=== PATIENT | male | born 1975 | race Caucasian/White ===

== ENCOUNTER 2022-01-20 17:58 | Emergency (ER) | payer OTHER ==
[~2022-01-20] VITALS: Ht 177.8 cm; Wt 124.7 kg
[~2022-01-20 17:58] MED LIST: Cymbalta60 MG; ERYT.5TO LEFTEYE; HALO2 PO; LISI5 PO; NAPR500 PO; OXYACE5T PO; RXERYTOPTH OP
[2022-01-20 19:58] LABS: BASOPHILS ABSOLUTE AUTO 0.02 K/mm3 (0.00-0.23); BASOPHILS PERCENT AUTO 0 % (0-2); EOSINOPHILS PERCENT AUTO 1 % (0-6); Hematocrit 36.7 % (37.0-53.0); Hemoglobin 11.9 g/dL (13.5-17.5); IMMATURE GRAN ABSOLUTE AUTO 0.06 K/mm3 (0.00-0.10); IMMATURE GRAN PERCENT AUTO 1 % (0-1); LYMPHOCYTES ABSOLUTE AUTO 0.87 K/mm3 (0.84-5.20); LYMPHOCYTES PERCENT AUTO 9 % (21-46); MONOCYTES ABSOLUTE AUTO 0.58 K/mm3 (0.16-1.47); MONOCYTES PERCENT AUTO 6 % (4-13); Mean Corpuscular HGB 26.4 pg (26.0-34.0); Mean Corpuscular HGB Conc 32.4 g/dL (31.5-36.5); Mean Corpuscular Volume 81 fL (80-100); NEUTROPHILS ABSOLUTE AUTO 7.81 K/mm3 (1.96-9.15); NEUTROPHILS PERCENT AUTO 83 % (41-73); RDW Coefficient Variation 15.5 % (11.7-14.2); RDW Standard Deviation 46.2 fL (35.1-46.3); Red Blood Cell Count 4.51 M/mm3 (4.30-5.90); White Blood Cell Count 9.44 K/mm3 (4.00-11.30)
[2022-01-20 19:59] LABS: Mean Platelet Volume 9.8 fL (9.1-12.4)
[2022-01-20 20:11] LABS: Alanine Aminotransfer (ALT/SGP 81 U/L (12-78); Albumin, Blood 3.1 g/dL (3.4-5.0); Albumin/Globulin Ratio 0.7 (0.8-1.8); Alk Phos 129 U/L (50-136); Anion Gap 7 mmol/L (6-16); Aspartate Aminotrans (AST/SGOT 65 U/L (12-37); Bilirubin, Total 0.6 mg/dL (0.1-1.0); Blood Urea Nitrogen 18 mg/dL (8-24); Bun/Creatinine Ratio 18.8 (12.0-20.0); CO2, Blood 29 mmol/L (21-32); Chloride, Blood 100 mmol/L (98-108); Creatinine, Blood 0.96 mg/dL (0.60-1.20); Globulin, Blood 4.4 g/dL (2.2-4.0); Glomerular Filtration Rate >60 (60-); Glucose, Blood 113 mg/dL (70-99); Potassium, Blood 3.9 mmol/L (3.5-5.5); Sodium, Blood 136 mmol/L (136-145); Total Protein, Blood 7.5 g/dL (6.4-8.2)
[2022-01-20 20:18] LABS: Platelet Count 207 K/mm3 (150-400)
[2022-01-20 20:22] LABS: Influenza A, PCR NEGATIVE (NEGATIVE); Influenza B, PCR NEGATIVE (NEGATIVE); Resp Syncytial Virus, PCR NEGATIVE (NEGATIVE)
[2022-01-20 20:40] LABS: SARS-Cov-2 (COVID-19) PCR, MMC POSITIVE (NEGATIVE)
== END 2022-01-20 21:56 | disposition home or self-care (01) ==
LOC: ER 17:58
PROVIDERS: Physician Assistant
DX: U07.1 COVID-19 (principal); F17.200 Nicotine dependence, unspecified, uncomplicated
CPT/HCPCS: 0241U; 36415; 71045; 80053; 83605; 85025; 93005; 93010; J2060

== ENCOUNTER 2025-01-07 15:07 | Inpatient (IN) | payer OTHER ==
[~2025-01-07] VITALS: Ht 172.7 cm; Wt 121.5 kg
[~2025-01-07 15:07] MED LIST changes: +AMLO10 PO; +ATOR40TA PO; +Aspir 8181 MG PO; +BUSP10 PO; +CARV6.25 PO; +DIPH50 PO; +FURO40 PO; +HYDHCL25 PO; +LOSA50 PO; +RISP3 PO; +SPIR25 PO
[2025-01-07] MEDS ORDERED: MethylPREDNISolone Sod Succ 125 MG Vial IV ONE (15:15)
[2025-01-07] MEDS ORDERED: Albuterol 2.5 MG/3 ML VIAL INH SCH (15:15)
[2025-01-07 15:30] LABS: BASOPHILS ABSOLUTE AUTO 0.06 K/mm3 (0.00-0.23); BASOPHILS PERCENT AUTO 1 % (0-2); EOSINOPHILS ABSOLUTE AUTO 0.17 K/mm3 (0.00-0.68); EOSINOPHILS PERCENT AUTO 1 % (0-6); Hematocrit 36.6 % (37.0-53.0); Hemoglobin 11.6 g/dL (13.5-17.5); IMMATURE GRAN ABSOLUTE AUTO 0.06 K/mm3 (0.00-0.10); IMMATURE GRAN PERCENT AUTO 1 % (0-1); LYMPHOCYTES ABSOLUTE AUTO 0.94 K/mm3 (0.84-5.20); LYMPHOCYTES PERCENT AUTO 8 % (21-46); MONOCYTES ABSOLUTE AUTO 0.91 K/mm3 (0.16-1.47); MONOCYTES PERCENT AUTO 8 % (4-13); Mean Corpuscular HGB 26.4 pg (26.0-34.0); Mean Corpuscular HGB Conc 31.7 g/dL (31.5-36.5); Mean Corpuscular Volume 83 fL (80-100); NEUTROPHILS ABSOLUTE AUTO 9.69 K/mm3 (1.96-9.15); NEUTROPHILS PERCENT AUTO 82 % (41-73); NRBC ABSOLUTE 0.02 K/mm3 (0.00-0.02); NRBC Auto 0.2 /100 WBC (0.0-0.2); Platelet Count 254 K/mm3 (150-400); RDW Coefficient Variation 16.2 % (11.7-14.2); RDW Standard Deviation 48.9 fL (35.1-46.3); White Blood Cell Count 11.83 K/mm3 (4.00-11.30)
[2025-01-07 15:49] LABS: Albumin, Blood 3.1 g/dL (3.4-5.0); Albumin/Globulin Ratio 0.8 (0.8-1.8); Bilirubin, Total 1.1 mg/dL (0.1-1.0); Bun/Creatinine Ratio 17.1 (12.0-20.0); Calcium, Blood 9.4 mg/dL (8.5-10.1); Creatinine, Blood 0.94 mg/dL (0.60-1.20); Potassium, Blood 4.5 mmol/L (3.5-5.5); Total Protein, Blood 7.1 g/dL (6.4-8.2)
[2025-01-07 16:05] LABS: Influenza A, PCR NEGATIVE (NEGATIVE); Influenza B, PCR NEGATIVE (NEGATIVE); Resp Syncytial Virus, PCR NEGATIVE (NEGATIVE); SARS-Cov-2 (COVID-19) PCR, MMC NEGATIVE (NEGATIVE)
[2025-01-07] MEDS ORDERED: Furosemide 10 MG/ML 4ML Vial IV ONE (16:30)
[2025-01-07] MEDS ORDERED: Ipratropium/Albuterol SulF 2.5-0.5MG/3 ML Amp INH SCH ×2 (18:15)
[2025-01-07] MEDS ORDERED: Albuterol 2.5 MG/3 ML VIAL INH PRN (19:40)
[2025-01-07] MEDS ORDERED: CefTRIAXone Sodium 1,000 MG in NS 100 ML IV SCH (19:49)
[2025-01-07] MEDS ORDERED: Azithromycin 500 MG in NS 250 ML IV SCH (19:49)
[2025-01-07] MEDS ORDERED: FLU VACC TS2024-25(6MOS UP)/PF 45 MCG/0.5 ML SYRINGE IM ONE (20:00)
[2025-01-07] MEDS ORDERED: Nicotine 14 MG PATCH TOP SCH (20:00)
[2025-01-07] MEDS ORDERED: Lactobacil 2-S.Thermo-Bifido 1 1 Cap PO SCH (21:00)
[2025-01-08] MEDS ORDERED: MethylPREDNISolone Sod Succ 125 MG Vial IV SCH
[2025-01-08 01:05] VITALS: BP 146/111
--- NOTE | 2025-01-08 01:22 | NUR ---
ED TRANSFER/ SHIFT SUMMARY PT ARRIVED IN THE [facility] TO THE MEDICAL FLOOR @0101 FROM THE ED. PT BROUGHT ALL HIS BELONINGS WITH HIM. PT TRANSFERRED INDEPENDENTLY TO THE HOSPITAL BED. EDUCATED ON THE CALL LIGHT. RN BREAK NURSE RANGEL COMPLETED THE ADMISSION ASSESSMENT, SKIN CHECK WITH THIS YOUTH SERVICES SPECIALIST. HEALTH HX COMPLETED. MEDICATION RECONCILIATION COMPLETED BY THIS YOUTH SERVICES SPECIALIST. PER PT REPORT HE HAS BEEN NON-COMPLIANT WITH HIS HOME MEDICATIONS, EXCEPT TOOK BABY ASPIRIN YESTERDAY, 01/07/25. PT IS A/O X4, ABLE TO MAKE HIS NEEDS KNOWN. PT IS ON 2L VIA NASAL CANULA, BASELINE IS RA. PT IS ON TELE MONITORING. IV IS ON RIGHT UPPER CHEST WALL, SALINE LOCKED. PT USING URINAL. NO COMPLAINTS OFFERED. SNACK GIVEN TO THE PT. BED AT THE LOWEST POSITION, CALL LIGHT WITHIN REACH.
[2025-01-08 04:25] VITALS: BP 142/97
[2025-01-08 06:39] LABS: BASOPHILS ABSOLUTE AUTO 0.02 K/mm3 (0.00-0.23); BASOPHILS PERCENT AUTO 0 % (0-2); EOSINOPHILS PERCENT AUTO 0 % (0-6); Hematocrit 39.8 % (37.0-53.0); Hemoglobin 12.4 g/dL (13.5-17.5); IMMATURE GRAN ABSOLUTE AUTO 0.07 K/mm3 (0.00-0.10); IMMATURE GRAN PERCENT AUTO 1 % (0-1); LYMPHOCYTES ABSOLUTE AUTO 0.36 K/mm3 (0.84-5.20); LYMPHOCYTES PERCENT AUTO 3 % (21-46); MONOCYTES ABSOLUTE AUTO 0.16 K/mm3 (0.16-1.47); MONOCYTES PERCENT AUTO 2 % (4-13); Mean Corpuscular HGB 26.1 pg (26.0-34.0); Mean Corpuscular HGB Conc 31.2 g/dL (31.5-36.5); Mean Corpuscular Volume 84 fL (80-100); Mean Platelet Volume 10.6 fL (9.1-12.4); NEUTROPHILS ABSOLUTE AUTO 10.09 K/mm3 (1.96-9.15); NEUTROPHILS PERCENT AUTO 94 % (41-73); Platelet Count 318 K/mm3 (150-400); RDW Coefficient Variation 16.3 % (11.7-14.2); RDW Standard Deviation 49.3 fL (35.1-46.3); Red Blood Cell Count 4.76 M/mm3 (4.30-5.90)
[2025-01-08 06:56] LABS: Albumin, Blood 3.3 g/dL (3.4-5.0); Albumin/Globulin Ratio 0.7 (0.8-1.8); Bilirubin, Total 0.8 mg/dL (0.1-1.0); Bun/Creatinine Ratio 25.5 (12.0-20.0); Calcium, Blood 9.8 mg/dL (8.5-10.1); Creatinine, Blood 0.83 mg/dL (0.60-1.20); Globulin, Blood 4.5 g/dL (2.2-4.0); Potassium, Blood 4.1 mmol/L (3.5-5.5); Total Protein, Blood 7.8 g/dL (6.4-8.2)
[2025-01-08] MEDS ORDERED: Carvedilol 3.125 MG Tab PO SCH (08:00)
[2025-01-08 08:13] VITALS: BP 110/92
[2025-01-08] MEDS ORDERED: Enoxaparin 40 MG/0.4 ML SYR SC SCH (09:00)
[2025-01-08] MEDS ORDERED: Furosemide 10 MG/ML 4ML Vial IV SCH (09:00)
[2025-01-08] MEDS ORDERED: Losartan Potassium 25 MG Tab PO SCH (09:00)
[2025-01-08] MEDS ORDERED: Empagliflozin 10 MG TAB PO SCH (09:00)
[2025-01-08] MEDS ORDERED: NS 250 ML IV PRN (10:50)
[2025-01-08 15:36] VITALS: BP 110/62
[2025-01-08] MEDS ORDERED: Insulin Human Lispro 100 Units/ML 3ML Syringe SC SCH (16:30)
--- NOTE | 2025-01-08 18:29 | NUR ---
SHIFT SUMMARY PT A&OX4. PT ADMITTED DUE TO ACUTE RESP. FAILURE. PT REPORTS NO PAIN. PT INDEPENDENT IN ROOM. PT ON TELE. PT HAS CONT PULSE OX ON. SPO2 IS 90%. PT REPORTS NO SOB BUT HAS TACHYPNIA WITH EXERTION. PT EATS ADEQUATE. PT ACHS, DID NOT NEED TO USE CORRECTION DURING SHIFT. PT ON STRICT I&O'S WITH FREE WATER RESTRICTION OF 1500. PT REMAINED WITHIN RANGE DURING SHIFT. PT RECEIVING ANTIBIOTIC, LASIX, STEROIDS. RESPIRATORY CARE GIVES PT TREATMENTS. PT DID NOT RECEIVING MORNING DOSE OF LASIX AND STEROID DUE TO NO IV. CALLED DR. WEBB NOTIFY, LEFT VOICEMAIL, DID NOT RECEIVE CALL BACK. PT IV WAS PLACED AFTER 2 ATTEMPTS BY THIS RN, AND MULTIPLE BY CHARGE AND OTHER RN'S. IV WAS PLACED, BUT THE IV THAT WAS PLACED THIS AFTERNOON WAS PULLED, "PT REPORTED NOT LIKING PLACEMENT, HARD TO USE DOMINANT HAND." WILL PASS ON TO INTERFACE CONTROL OFFICER, PT NEEDS IV. PT HAS ECHO TODAY. PT VSS. PT USES URINAL, AND IS CONTINENT. FRIEND WAS AT BEDSIDE TODAY. PT IN BED. BED IN LOWEST POSITION, CALL LIGHT IN REACH.
[2025-01-08 19:20] VITALS: BP 119/75
--- NOTE | 2025-01-08 21:25 | NUR ---
@[id number] THIS CERTIFIED PHLEBOTOMIST CALLED THE RESIDENT (OSMAR) D/T PT YELLING ON THE PHONE, AGITATED. PT ALSO WAS AGITATED AT HS, FIDGETY AND REPORTS ANXIETY. PER PT REPORT HE HAS BEEN OFF ALL HIS MEDICATIONS FOR OVER SIX MONTHS, INCLUDING RISPERIDONE. NEW ORDER FOR HYDROXYZINE 50MG PO X1 RECEIVED.
[2025-01-08] MEDS ORDERED: HyDROXyzine HCl 25 MG Tab PO ONE (22:00)
[2025-01-08 23:53] VITALS: BP 135/95
[2025-01-09] VITALS (9 sets, daily range): BP systolic 102–138; BP diastolic 66–125
--- NOTE | 2025-01-09 03:06 | NUR ---
SHIFT SUMMARY NO ACUTE EVENTS DURING THIS SHIFT. EX AND PT'S CHILDREN BY THE BEDSIDE WITH LOUDNESS @HS. THIS NURSE ASKED THE EX- TO LEAVE THE BEDSIDE D/T ARGUING LOUDLY WITH THE PT. PT CONTINUES ON 2L VIA NASAL CANNULA. CONTINUOUS PULSE OXIMETER SAT'S LOW 90'S. PT DENIES SOB. HS BG 152. STRICT I&O'S, FREE H2O 1.5L. PT REPORTS VERY THIRSTY, DRINKING 3GALLONS/DAY MILK AND WATER @HOME/DAY. PT DENIES PAIN. AGITATED AND FIDGETY @HS. ONE-TIME ORDER OF ATARAX 50MG RECEIVED FROM ON-CALL RESIDENT. ADMINISTERED WITH GOOD EFFECTIVNESS. IV ABX ADMINISTERED ORDERED. BED AT THE LOWEST POSITION, CALL LIGHT W/I REACH. PT IS A/O X4, ABLE TO MAKE HIS NEEDS KNOWN AND COOPERATIVE WITH CARE.
[2025-01-09 06:02] LABS: BASOPHILS ABSOLUTE AUTO 0.02 K/mm3 (0.00-0.23); BASOPHILS PERCENT AUTO 0 % (0-2); EOSINOPHILS PERCENT AUTO 0 % (0-6); Hematocrit 40.6 % (37.0-53.0); Hemoglobin 12.6 g/dL (13.5-17.5); IMMATURE GRAN ABSOLUTE AUTO 0.12 K/mm3 (0.00-0.10); IMMATURE GRAN PERCENT AUTO 1 % (0-1); LYMPHOCYTES ABSOLUTE AUTO 0.47 K/mm3 (0.84-5.20); LYMPHOCYTES PERCENT AUTO 3 % (21-46); MONOCYTES PERCENT AUTO 2 % (4-13); Mean Corpuscular HGB 26.2 pg (26.0-34.0); Mean Corpuscular Volume 84 fL (80-100); Mean Platelet Volume 10.2 fL (9.1-12.4); NEUTROPHILS ABSOLUTE AUTO 17.51 K/mm3 (1.96-9.15); NEUTROPHILS PERCENT AUTO 95 % (41-73); Platelet Count 413 K/mm3 (150-400); RDW Coefficient Variation 16.3 % (11.7-14.2); RDW Standard Deviation 50.1 fL (35.1-46.3); Red Blood Cell Count 4.81 M/mm3 (4.30-5.90); White Blood Cell Count 18.42 K/mm3 (4.00-11.30)
[2025-01-09 06:31] LABS: Anion Gap 7 mmol/L (3-11); Blood Urea Nitrogen 33 mg/dL (8-24); Bun/Creatinine Ratio 35.1 (12.0-20.0); CHOL/HDL RATIO 5.3; CO2, Blood 33 mmol/L (21-32); Calcium, Blood 9.6 mg/dL (8.5-10.1); Chloride, Blood 103 mmol/L (98-108); Cholesterol 212 mg/dL (50-200); Creatinine, Blood 0.94 mg/dL (0.60-1.20); Glomerular Filtration Rate 100 (60-); Glucose, Blood 145 mg/dL (70-99); HDL Cholesterol 40 mg/dL (>39); LDL/HDL RATIO 3.7; Low Density Lipoprotein Chol 149 mg/dL (0-110); Potassium, Blood 4.4 mmol/L (3.5-5.5); Sodium, Blood 139 mmol/L (136-145); Triglycerides 115 mg/dL (30-160); Very Low Density Lipoprot Chol 23 mg/dL (6-32)
[2025-01-09] MEDS ORDERED: Atorvastatin 40 MG Tab PO SCH (09:00)
[2025-01-09] MEDS ORDERED: RisperiDONE 1 MG Tab PO SCH (09:00)
[2025-01-09] MEDS ORDERED: Carvedilol 3.125 MG Tab PO SCH (09:00)
[2025-01-09] MEDS ORDERED: Aspirin 81 MG Chew PO SCH (09:00)
[2025-01-09] MEDS ORDERED: DULoxetine HCL 30 MG Cap DR PO SCH (09:00)
[2025-01-09] MEDS ORDERED: Spironolactone 25 MG Tab PO SCH (09:00)
[2025-01-09] MEDS ORDERED: BusPIRone HCl 10 MG Tab PO SCH (09:00)
[2025-01-09] MEDS ORDERED: HyDROXyzine HCl 25 MG Tab PO SCH (09:00)
--- NOTE | 2025-01-09 18:32 | NUR ---
SHIFT SUMMMARY- PT ALERT AND ORIENTED, INDEPENDENT TO THE BATHROOM. RECIEVING IV LASIX BID. PT HAS BEEN SLEEPING T/O THE DAY. PSYCH CONSULT WAS CALLED TO DR Mary OF PSYCHHIATRY. HE IS AWARE AND WILLL SEE THE PT TOMORROW MORNING. PT STATES HHE SWEATS HHEAVIILY AT NIGHT, BED BATH COMPLLETED WITH SOME PT ASSISTANCE. PT IS RA AT BASELINE, HOWEVER HE IS SWEATING HEAVILY AND APPPEARS TO HAVE INCREASED WOB. RT IS AWARE AND HAS PROVIDED PT WITH BREATHING Tx T/O THEE DAY. HE HAS BEEN SLEEPING SOUNDLY ON ALL ROUNDS. PT IS CURRENTLY LAYING IN BED, CALL LIGHT IN REACH, TELE AND CONT PULSE OX IN PLACE WELL O2 VIA NC.
[2025-01-09] MEDS ORDERED: DiphenhydrAMINE HCl 50 MG Cap PO SCH (21:00)
--- NOTE | 2025-01-10 03:09 | NUR ---
SHIFT SUMMARY NO ACUTE OVERNIGHT EVENTS. PT RESTING T/O THIS SHIFT, EASILY AWAKEN/AROUSABLE FOR MEDICATION ADMINISTRATION AND ROUNDS. PT IS COOPERATIVE WITH CARE. O2 @2L VIA NASAL CANNULA. CONTINUOUS PULSE OXIMETER IN PLACE, SAT'S HAVE BEEN IN LOW 90%. PT DENIES SOB. HS B. TELE:SR @84, PT DENIES PAIN/PRESSURE. IV ABX ADMINISTERED ORDERED. BED AT THE LOWEST POSITION, CALL LIGHT W/I REACH. PT IS A/O X4, ABLE TO MAKE HIS NEEDS KNOWN.
[2025-01-10 04:28] VITALS: BP 108/73
[2025-01-10 06:30] LABS: BASOPHILS ABSOLUTE AUTO 0.01 K/mm3 (0.00-0.23); BASOPHILS PERCENT AUTO 0 % (0-2); EOSINOPHILS PERCENT AUTO 0 % (0-6); Hematocrit 42.6 % (37.0-53.0); Hemoglobin 13.2 g/dL (13.5-17.5); IMMATURE GRAN PERCENT AUTO 1 % (0-1); LYMPHOCYTES ABSOLUTE AUTO 0.43 K/mm3 (0.84-5.20); LYMPHOCYTES PERCENT AUTO 3 % (21-46); MONOCYTES ABSOLUTE AUTO 0.23 K/mm3 (0.16-1.47); MONOCYTES PERCENT AUTO 2 % (4-13); Mean Corpuscular HGB 26.6 pg (26.0-34.0); Mean Corpuscular Volume 86 fL (80-100); Mean Platelet Volume 9.5 fL (9.1-12.4); NEUTROPHILS ABSOLUTE AUTO 14.94 K/mm3 (1.96-9.15); NEUTROPHILS PERCENT AUTO 95 % (41-73); Platelet Count 420 K/mm3 (150-400); RDW Coefficient Variation 16.5 % (11.7-14.2); RDW Standard Deviation 50.9 fL (35.1-46.3); Red Blood Cell Count 4.97 M/mm3 (4.30-5.90); White Blood Cell Count 15.71 K/mm3 (4.00-11.30)
[2025-01-10 07:08] LABS: Albumin/Globulin Ratio 0.7 (0.8-1.8); Bilirubin, Total 0.6 mg/dL (0.1-1.0); Bun/Creatinine Ratio 45.9 (12.0-20.0); Creatinine, Blood 1.11 mg/dL (0.60-1.20); Globulin, Blood 4.2 g/dL (2.2-4.0); Potassium, Blood 4.2 mmol/L (3.5-5.5); Total Protein, Blood 7.2 g/dL (6.4-8.2)
[2025-01-10 07:33] VITALS: BP 119/77
[2025-01-10 12:05] VITALS: BP 82/55
[2025-01-10 15:40] VITALS: BP 110/67
--- NOTE | 2025-01-10 19:21 | NUR ---
SHIFT SUMMARY PATIENT SLEEPING MOST OF SHIFT. HE DOES WAKE EASILY FOR MEDICATIONS, FOOD AND TO URINATE. PATIENT WAS ABLE TO TOLERATE REDUCTION OF OXYGEN THIS EVENING AT 1800, SATTING 93% ON 2.5L WHILE SLEEPING. HE CALLS APPROPRIATLY.
[2025-01-10 19:56] VITALS: BP 105/70
[2025-01-10 23:53] VITALS: BP 119/75
--- NOTE | 2025-01-11 03:24 | NUR ---
SHIFT SUMMARY 2L NASAL CANNULA, BIOX SAT'S>90%.DENIES SOB,PAIN.TELE:SR @80.HS B.BED @LOWEST POSITION,CALL LIGHT W/I REACH.A/O X3, ABLE TO MAKE HIS NEEDS KNOWN. NO ACUTE EVENTS DURING THIS SHIFT.
[2025-01-11 04:27] VITALS: BP 132/92
[2025-01-11 05:29] LABS: BASOPHILS ABSOLUTE AUTO 0.02 K/mm3 (0.00-0.23); BASOPHILS PERCENT AUTO 0 % (0-2); EOSINOPHILS PERCENT AUTO 0 % (0-6); Hematocrit 41.7 % (37.0-53.0); Hemoglobin 13.1 g/dL (13.5-17.5); IMMATURE GRAN ABSOLUTE AUTO 0.12 K/mm3 (0.00-0.10); IMMATURE GRAN PERCENT AUTO 1 % (0-1); LYMPHOCYTES ABSOLUTE AUTO 0.49 K/mm3 (0.84-5.20); LYMPHOCYTES PERCENT AUTO 3 % (21-46); MONOCYTES ABSOLUTE AUTO 0.46 K/mm3 (0.16-1.47); MONOCYTES PERCENT AUTO 3 % (4-13); Mean Corpuscular HGB 26.4 pg (26.0-34.0); Mean Corpuscular HGB Conc 31.4 g/dL (31.5-36.5); Mean Corpuscular Volume 84 fL (80-100); Mean Platelet Volume 9.7 fL (9.1-12.4); NEUTROPHILS ABSOLUTE AUTO 14.19 K/mm3 (1.96-9.15); NEUTROPHILS PERCENT AUTO 93 % (41-73); Platelet Count 409 K/mm3 (150-400); RDW Coefficient Variation 16.4 % (11.7-14.2); RDW Standard Deviation 49.7 fL (35.1-46.3); Red Blood Cell Count 4.97 M/mm3 (4.30-5.90); White Blood Cell Count 15.28 K/mm3 (4.00-11.30)
[2025-01-11 06:17] LABS: Albumin/Globulin Ratio 0.8 (0.8-1.8); Bilirubin, Total 0.5 mg/dL (0.1-1.0); Bun/Creatinine Ratio 44.2 (12.0-20.0); Calcium, Blood 9.1 mg/dL (8.5-10.1); Creatinine, Blood 1.04 mg/dL (0.60-1.20); Globulin, Blood 3.9 g/dL (2.2-4.0); Potassium, Blood 4.7 mmol/L (3.5-5.5); Total Protein, Blood 6.9 g/dL (6.4-8.2)
[2025-01-11 07:27] VITALS: BP 98/58
[2025-01-11] MEDS ORDERED: Furosemide 40 MG Tab PO SCH (09:00)
[2025-01-11] MEDS ORDERED: Furosemide 10 MG/ML 4ML Vial IV SCH ×2 (09:00→15:00)
[2025-01-11 09:10] VITALS: BP 114/68
[2025-01-11 10:17] VITALS: BP 111/69
[2025-01-11] MEDS ORDERED: HyDROXyzine HCl 25 MG Tab PO PRN (13:35)
[2025-01-11 17:01] VITALS: BP 107/69
--- NOTE | 2025-01-11 17:01 | NUR ---
SHIFT SUMMARY SHAHID REFUSED ATARAX THIS AM AND STATES HE ONLY TAKES IT AT NIGHT IF HE NEEDS IT. DR CLAY NOTIFIED, VO RECIEVED TO MAKE HYDRALAZINE PRN. PATIENT STILL SLEEPING MOST OF SHIFT BUT DID GET UP TO SHOWER THIS AFTERNOON WITHOUT OXYGEN AND MAKING BETTER EYE CONTACT WHEN THIS COMMISSIONS COORDINATOR IS TALKING TO HIM. OXYGEN SAT CONTINUES TO DECREASE TO LOW 85% ON ROOM AIR WHEN HE IS SLEEPING BUT WHILE AWAKE SATURATIONS ARE AT 94%. PATIENT CURRENTLY ON 1LPM HE IS SLEEPING AND SATTING 89-92%. HE IS INDEPENDENT IN ROOM, BED IN LOW POSITION, CALL LIGHT IN REACH. HE IS ABLE TO MAKE NEEDS KNOWN.
[2025-01-11 20:08] VITALS: BP 116/76
[2025-01-12 00:23] VITALS: BP 117/76
--- NOTE | 2025-01-12 02:58 | NUR ---
SHIFT SUMMARY PT IS WITHDRAWN, WAKES UP FOR MEDS AND ASSESSMENT. COOPERATIVE WITH CARE. O2 1L, SAT'S>97%. PT DENIES PAIN/DISCOMFORT. NO ACUTE EVENTS. BED AT LOWEST POSITION,CALL LIGHT W/I REACH.
[2025-01-12 05:09] VITALS: BP 117/84
[2025-01-12 05:53] LABS: BASOPHILS ABSOLUTE AUTO 0.02 K/mm3 (0.00-0.23); BASOPHILS PERCENT AUTO 0 % (0-2); EOSINOPHILS ABSOLUTE AUTO 0.01 K/mm3 (0.00-0.68); EOSINOPHILS PERCENT AUTO 0 % (0-6); Hematocrit 42.8 % (37.0-53.0); Hemoglobin 13.3 g/dL (13.5-17.5); IMMATURE GRAN ABSOLUTE AUTO 0.14 K/mm3 (0.00-0.10); IMMATURE GRAN PERCENT AUTO 1 % (0-1); LYMPHOCYTES ABSOLUTE AUTO 0.55 K/mm3 (0.84-5.20); LYMPHOCYTES PERCENT AUTO 4 % (21-46); MONOCYTES ABSOLUTE AUTO 0.52 K/mm3 (0.16-1.47); MONOCYTES PERCENT AUTO 4 % (4-13); Mean Corpuscular HGB Conc 31.1 g/dL (31.5-36.5); Mean Corpuscular Volume 84 fL (80-100); Mean Platelet Volume 9.8 fL (9.1-12.4); NEUTROPHILS ABSOLUTE AUTO 12.47 K/mm3 (1.96-9.15); NEUTROPHILS PERCENT AUTO 91 % (41-73); Platelet Count 421 K/mm3 (150-400); RDW Standard Deviation 48.6 fL (35.1-46.3); Red Blood Cell Count 5.12 M/mm3 (4.30-5.90); White Blood Cell Count 13.71 K/mm3 (4.00-11.30)
[2025-01-12 06:37] LABS: Albumin, Blood 2.9 g/dL (3.4-5.0); Albumin/Globulin Ratio 0.8 (0.8-1.8); Bilirubin, Total 0.5 mg/dL (0.1-1.0); Bun/Creatinine Ratio 46.2 (12.0-20.0); Calcium, Blood 8.8 mg/dL (8.5-10.1); Creatinine, Blood 0.97 mg/dL (0.60-1.20); Globulin, Blood 3.8 g/dL (2.2-4.0); Potassium, Blood 4.7 mmol/L (3.5-5.5); Total Protein, Blood 6.7 g/dL (6.4-8.2)
[2025-01-12 08:00] VITALS: BP 114/88
[2025-01-12] MEDS ORDERED: JARDIANCE10 MG PO (12:27)
[2025-01-12] MEDS ORDERED: ALBU2.5V5 INH (12:27)
[2025-01-12] MEDS ORDERED: Nicoderm Cq1 EAC1 TOP (12:28)
--- NOTE | 2025-01-12 15:33 | NUR ---
PT SLEEPING AT START OF SHIFT. WOKE EASILY FOR CARE, BUT SLEEPING WHEN NOT ANSWERING QUESTIONS OR EATING MEALS. MEDS WHOLE W/H2O. PT ON RA AT START OF SHIFT; CONT. BIOX IN PLACE SHOWING 93-95%. DR VALDEZ IN TO SEE PT EARLY AND LATER DR TRAN. PT ABLE TO D/C HOME WITH H/H. D/C ORDERS PLACED. MEDS FAXED TO [facility], PER PT REQUEST. PT INSTRUCTED TO MAINTAIN DIABETIC AND LOW SODIUM DIET. PT VERBALIZED UNDERSTANDING. PT INDEPENDENT IN RM AND ABLE TO DRESS HIMSELF. PT CALLED FAMILY FOR RIDE AND THEN ASSISTED OUT VIA W/C WITH ALL BELONGINGS.
== END 2025-01-12 13:12 | disposition home health service (06) | DRG 193 ==
LOC: ER 15:07 → ERHOLD 15:08 → MEDS 01-08 01:01 → ENPENDDIS 01-12 11:41 → MEDS 01-12 13:12
PROVIDERS: Emergency Medicine; Family Medicine; Registered Nurse; Student in an Organized Health Care Education/Training Program; ADMIT Internal Medicine
DX: J18.9 Pneumonia, unspecified organism (principal); I50.23 Acute on chronic systolic (congestive) heart failure; J96.01 Acute respiratory failure with hypoxia; I42.0 Dilated cardiomyopathy; F15.20 Other stimulant dependence, uncomplicated; Z68.41 Body mass index [BMI] 40.0-44.9, adult; J44.0 Chronic obstructive pulmonary disease with (acute) lower respiratory infection; Z28.21 Immunization not carried out because of patient refusal; I25.10 Atherosclerotic heart disease of native coronary artery without angina pectoris; R73.9 Hyperglycemia, unspecified; E66.01 Morbid (severe) obesity due to excess calories; F20.9 Schizophrenia, unspecified; F17.210 Nicotine dependence, cigarettes, uncomplicated; Z88.8 Allergy status to other drugs, medicaments and biological substances; Z79.82 Long term (current) use of aspirin; Z79.899 Other long term (current) drug therapy; Z71.6 Tobacco abuse counseling
CPT/HCPCS: 0241U; 36415; 71045; 80048; 80053; 80061; 82947; 83036; 83605; 83880; 84145; 84484; 85025; 93005; 93010; 94640; 94644; 94664; 94760; 94762; 96365; 96366; 96367; 96372; 96375; 96376; 99285-25; A9270; C8929; G0378; J0456; J0696; J1650; J1940; J2919; J7050; Q9957